=== PATIENT | female | born 1940 ===

== ENCOUNTER 2018-12-09 18:01 | Emergency (ER) | payer MEDICARE, OTHER ==
[2018-12-09] MEDS ORDERED: predniSONE 20 MG Tab PO STA (19:05)
--- NOTE | 2018-12-09 19:12 | EDM.PDOC ---
ED HPI GENERAL MEDICAL PROBLEM - General Chief Complaint: Back Pain or Injury Stated Complaint: LT HIP PAIN Time Seen by Provider: 12/09/18 18:40 Source of Information: Reports: Patient, RN Notes Reviewed History Limitations: Reports: No Limitations - History of Present Illness INITIAL COMMENTS - FREE TEXT/NARRATIVE: The patient states that she has been experiencing left hip pain for the past 3- 4 days, however, when asked to show me specifically where she is having pain, the patient indicates her left sacroiliac region, and states that it radiates down into her left buttock. The pain is minimal if she is not moving, but made much worse by getting up and especially with walking. She denies prior injury to the area, and denies similar symptoms prior to 3-4 days ago. The patient states that she has chronic lower back pain, presumably due to arthritis, and that she has received local steroid injections to her back in the past, which have given her good relief. The patient denies recent illness, including fever, chills, cough, dyspnea, chest discomfort, palpitations, nausea, vomiting, constipation, diarrhea, abdominal pain, recent weight gain or weight loss, bloody bowel movements, black bowel movements, headaches, rashes, or problems urinating. The patient states that she took Tylenol, but has been told not to take ibuprofen due to chronic renal insufficiency. She states that the Tylenol alone is inadequate to treat her pain. The patient states that she saw her PCP about her pain yesterday, and that x- rays of her hip were performed, but that nobody has gotten back to her with the results. She is scheduled to follow-up with her PCP on 12/12/2018, but states that she came to the ED because of continued pain. 2 or 3 view left hip and pelvis x-rays obtained 12/08/[address] Askew as: 1. Joint space narrowing within the right hip. 2. Other incidental finding as noted above. Note that the x-rays above found joint space narrowing within the right hip, not the left. The patient's PCP is Dr. Radha Albrecht. Treatments POLISHER NUMERAL: Reports: Other (see below) Other Treatments POLISHER NUMERAL: none Left Hip Pain Score (Numeric/FACES): 7 - Related Data Allergies Allergy/AdvReac Type Severity Reaction Status Date / Time loratab Allergy Other Uncoded 12/09/18 18:16 Home Meds: Home Meds Fosinopril [Monopril] 20 mg PO DAILY 12/09/18 [History] Levothyroxine [Synthroid] 50 mcg PO DAILY 12/09/18 [History] Loratadine 10 mg PO DAILY 12/09/18 [History] Metoprolol Succinate 25 mg PO DAILY 12/09/18 [History] Omeprazole Magnesium [Prilosec] 20 mg PO DAILY 12/09/18 [History] PARoxetine [Paxil] 20 mg PO DAILY 12/09/18 [History] Simvastatin 20 mg PO DAILY 12/09/18 [History] predniSONE [Prednisone] 1 tab PO QPM #2 tablet 12/09/18 [Rx] Past Medical History Cardiovascular History: Reports: High Cholesterol, Hypertension Gastrointestinal History: Reports: Colon Polyp, GERD Genitourinary History: Reports: Chronic Renal Insuffiency, Urinary Incontinence Musculoskeletal History: Reports: Back Pain, Chronic, Fracture (right ankle), Osteoarthritis, Osteoporosis Psychiatric History: Reports: Depression Endocrine/Metabolic History: Reports: Hypothyroidism - Past Surgical History HEENT Surgical History: Reports: Cataract Surgery (bilateral), Oral Surgery ( wisdom teeth extraction) GI Surgical History: Reports: Colonoscopy (x 2) Female Surgical History: Reports: Hysterectomy (partial, 1976) Musculoskeletal Surgical History: Reports: Other (See Below) (Bilateral thumb surgery) Oncologic Surgical History: Reports: Biopsy of Breast Social & Family History - Tobacco Use Smoking Status *Q: Former Smoker Years of Tobacco use: 8 Month/Year Tobacco Last Used: Quit 1968 - Caffeine Use Caffeine Use: Reports: Coffee, Soda, Tea - Alcohol Use Alcohol Use History: No - Recreational Drug Use Recreational Drug Use: No - Living Situation & Occupation Living situation: Reports: , with Spouse, with Family (Son) Occupation: Retired ED ROS GENERAL - Review of Systems Review Of Systems: ROS reveals no pertinent complaints other than HPI. ED EXAM,LOWER BACK PAIN/INJURY - Physical Exam Exam: See Below Exam Limited By: No Limitations General Appearance: Alert, WD/WN, No Apparent Distress Eye Exam: Bilateral Eye: EOMI, Normal Inspection Ears: Normal External Exam, Hearing Grossly Normal Nose: Normal Inspection Throat/Mouth: Normal Inspection, Normal Lips, Normal Voice, No Airway Compromise Head: Atraumatic, Normocephalic Neck: Normal Inspection, Full Range of Motion Respiratory/Chest: No Respiratory Distress, Lungs Clear, Normal Breath Sounds, No Accessory Muscle Use Cardiovascular: Normal Peripheral Pulses, Regular Rate, Rhythm, No Gallop, No JVD, No Murmur, No Rub GI/Abdominal: Normal Bowel Sounds, Soft, Non-Tender, No Organomegaly, No Distention, No Abnormal Bruit, No Mass (Female) Exam: Deferred Rectal (Female) Exam: Deferred Back Exam: Normal Inspection, Full Range of Motion, NT Extremities: Normal Inspection, Normal Range of Motion, Normal Capillary Refill , Other (Reproducible tenderness to the soft tissue over the left sacroiliac area. The patient reports radiation of pain to her left buttock, but her left buttock is nontender.) Neurological: Alert, No Motor/Sensory Deficits, Oriented x 3 Psychiatric: Normal Affect Skin Exam: Warm, Dry, Intact, Normal Color, No Rash Course - Vital Signs Last Recorded V/S: Last Vital Signs Temp 37.1 C 12/09/18 18:14 Pulse 62 12/09/18 18:14 Resp 20 12/09/18 18:14 BP 168/74 H 12/09/18 18:14 Pulse Ox 95 12/09/18 18:14 - Orders/Labs/Meds Meds: Medications Discontinued Medications Generic Name Dose Route Start Last Admin Trade Name Sedrickq PRN Reason Stop Dose Admin Prednisone 40 mg 12/09/18 19:05 12/09/18 19:12 Prednisone PO 12/09/18 19:06 40 mg ONETIME STA Administration - Re-Assessments/Exams Free Text/Narrative Re-Assessment/Exam: 12/09/18 19:06 The patient's lower left back pain is reproducible with palpation over the left sacroiliac area, but it radiates down into her left buttock area, which indicates that it is not due to a muscle spasm, per se, but more likely due to nerve irritation from arthritis of the lumbar spine. We discussed options that included steroids versus a stronger pain medication, such as tramadol. The patient reports that prior local steroid injections in the spine have given her good relief, at the same time I am concerned that if I start her on tramadol, that she may have an adverse reaction, such as dizziness, nausea, or constipation, and the patient confirms that she had passed out in the past when taking Lortab. We decided, therefore, to give her a short course of prednisone. She will receive 40 mg here, and I will prescribe 20 mg QPM for tomorrow night and night. The patient will then see her PCP on Saturday, who can then decide if additional prednisone is appropriate, versus some other treatment modality. Departure - Departure Time of Disposition: 19:10 Disposition: Home, Self-Care 01 Condition: Good Clinical Impression: Low back pain - Discharge Information *PRESCRIPTION DRUG MONITORING PROGRAM REVIEWED*: Not Applicable *COPY OF PRESCRIPTION DRUG MONITORING REPORT IN PATIENT JOSEPH: Not Applicable Prescriptions: predniSONE [Prednisone] 1 tab PO QPM #2 tablet Instructions: Acute Back Pain, Adult Referrals: Radha Albrecht MD [Primary Care Provider] - Forms: ED Department Discharge Additional Instructions: You were seen in the emergency room for 3-4 days of lower left back pain, radiating to your left buttock. Based on your history and physical examination, your back pain is most likely due to nerve irritation related to arthritis of your lower spine. You have been started on the steroid medicine prednisone. A prescription for prednisone has been sent to [facility]. Take one tablet of prednisone tomorrow evening, 12/10/2018, and evening, 12/11/2018, as prescribed. Follow-up with your PCP, Dr. Radha Albrecht, on 12/12/2018, as previously scheduled. If any other problems, please do not hesitate to return to the ER.
== END 2018-12-09 19:23 | disposition home or self-care (01) ==
LOC: JD.ED 18:01
DX: M54.5 Low back pain (principal); K21.9 Gastro-esophageal reflux disease without esophagitis; I12.9 Hypertensive chronic kidney disease with stage 1 through stage 4 chronic kidney disease, or unspecified chronic kidney disease; N18.9 Chronic kidney disease, unspecified; E78.00 Pure hypercholesterolemia, unspecified; F32.9 Major depressive disorder, single episode, unspecified; E03.9 Hypothyroidism, unspecified; Z88.5 Allergy status to narcotic agent; Z79.899 Other long term (current) drug therapy; Z86.010 Personal history of colon polyps; Z98.890 Other specified postprocedural states; Z98.49 Cataract extraction status, unspecified eye; Z90.710 Acquired absence of both cervix and uterus; Z87.891 Personal history of nicotine dependence
CPT/HCPCS: 99283; A9270